=== PATIENT | female | born 2000 | race Caucasian/White ===

== ENCOUNTER 2020-07-21 02:18 | Inpatient (IN) | payer OTHER, SELFPAY ==
[2020-07-21] VITALS (14 sets, daily range): BP systolic 92–128; BP diastolic 41–77; PULSE 60–106; RESP 12–24; TEMP 36.4–36.7; O2SAT 97–100; BMI 22.1
--- NOTE | 2020-07-21 02:54 | ED.PSYCH ---
HPI - Psych General Chief Complaint: Psychiatric Symptoms Stated Complaint: CRISIS Time Seen by Provider: 07/21/20 02:53 Source: EMS Mode of arrival: EMS Limitations: other (Uncooperative) History of Present Illness HPI Narrative: Patient comes to the emergency room via EMS. Patient is coming from a custodial they had the patient be evaluated by [facility], who section the patient. According to [facility], patient has feelings of wanting to , no specific plan. Patient has been off medications for schizoaffective and bipolar disorder for over 3 years. Patient reported to them mood swings, states that she is being tracked for human sex trafficking. Patient was Section 12 by [facility] in the community, brought to the emergency room. Patient unwilling to talk Related Data Allergies Allergy/AdvReac Type Severity Reaction Status Date / Time No Known Allergies Allergy Verified 07/21/20 03:06 Review of Systems Review of Systems: Yes Other (Uncooperative) [facility] Past Medical History Medical History (Updated 07/21/20 @ 02:57 by Kavitha Irvin MD) Bipolar disorder Schizoaffective disorder Social History Social History Smoking Status: Current every day smoker Substance Use Type: Amphetamines, Club/Forestry Instructor Drugs, Crack/Cocaine, Hallucinogens, Marijuana and Other Substance Use Type Other:: anything i can get. Last Used Substance: Just Prior to Admission Any prior treatment program specific to substance use: Yes Advance Directives: No Physical Exam Vital Signs: Appearance: Alert. Oriented X3. Crying Eyes: Pupils equal, round and reactive to light. ENT: Pharynx normal. Neck: Normal inspection. CVS: Normal heart rate and rhythm. Respiratory: No respiratory distress. Abdomen: No distention. good BS x4 Skin: Skin warm and dry. Extremities: No lower extremity edema. Neuro: Oriented X 3. No motor deficit. No sensory deficit. Moving all extermities. No slurred speech Psych: pt teary, uncooperative, does not want to change her clothes into a gown, unwilling to talk Course Course Course Narrative: When patient arrived to the emergency room, patient tried fleeing. Then patient ran to the bathroom and Locked herself in there. Our charge nurse was able to open the bathroom. Patient curled up in the corner, does not want to be touched, does not want to get up, does not want to change into a hospital gown. Several nurses have attempted talking to her to avoid physical/chemical restraint. Patient was unwilling to cooperate. Patient had to be carried out of the bathroom, given 5mg of Haldol, 2 mg of Ativan. After the IM injection, she became more cooperative, helped to change into a hospital gown, requested food and water, physical restraints were not needed. Patient now awake, calm cooperative. [facility] health network consult pending. Sign-out given to Dr. Parks
[2020-07-21] MEDS: LORazepam 2 MG/ML VIAL IM (03:10)
[2020-07-21] MEDS: Haloperidol Lactate 5 MG/ML VIAL IM (03:10)
--- NOTE | 2020-07-21 03:15 | MHC.CARE ---
CARE team supported ED staff with pt who arrived by ambulance as a section 12 bedsearch after being evaluated in the community. After arriving, pt attempted to elope and closed herself in the bathroom. Attempts to coax pt into changing and moving into her designated room were made by this policy writer sales, security, rn charge, two others RNs, and the ED physician without success. Pt was physically moved to ED8 and assisted with changeover by security and nursing.
--- NOTE | 2020-07-21 04:07 | PC.NURSE ---
Arrival: pt arrived approximately at 0230 by ems. patient was seen [facility] in the community on section 12. section 12 was signed and dated at 07/21/20 at 0154. pt was uncooroperative with ems assessment. Upon arrival: Pt was tearful upon arrival. pt placed in chair. while this va underwriter was taking report from ems, patient attempted to elope. I asked here where she was going and assisted her back to her chair. Patient then walked ahead of this va underwriter, stated I have to pee and preceded to lock self in bathroom. Pt refused to respond when this rn attempted to redirect and have her open the door. This rn then opened the door with Horticultural Specialty Grower. patient was extremely labile alternating between crying and responding to internal stimuli. I don't like what they are saying about me. Pt refused to gas prover into hospital attire. Pt refused to hand over phone. Pt continued to refuse to respond to questions regarding history. Many attempts were made to redirect patient and verbally deescalate. The patient was given 30-45minutes to participate in gas prover Security called to bedside. 3 security officers attempted to gas prover patient. 3 Nurses attempted gas prover patient. MD garves to bathroom to attempt to deescalate. Pt continued to refuse to gas prover and answer questions about safety. Pt physically carried by ED staff and security from bathroom where the patient had barricaded herself to bed 8.. Pt medicated with IM Haldol and Ativan, rt thigh at 0310. Pt tearfully complied with changeover after being medicated. Pt moved to 6h for better visualization. 0340: call placed to [facility]. This va underwriter spoke to Vera (clinician who preformed assessment). Per Vera patient has a significant medical history of Schizoaffective disorder w/ bipolar. Pt has had two previous hospitalizations at [facility] for decompensation. Last event occurred in 2018, and patient has since been off all medication. Pt called [facility] papo after feeling like she was going to hurt herself. Pt also has had increased risky sexual behaviors, e.g. multiple sexual partners in short amount of time. pt lives with mother. Pt has tangental thoughts and disorganized speech pattern. Pt's mood is liable and alternates between being okay and texting on her phone to tearful and uncooperative. Pt's active delusion is that she is being investigated for Sexual trafficing others. No other active delusions reported. No plan for SI/HI. Pt has been section 12 for rapid decompensation.
--- NOTE | 2020-07-21 11:06 | PC.NURSE ---
Pt transferred from main ED, minimal eye contact, responding only briefly to questions.
--- NOTE | 2020-07-21 12:24 | PC.NURSE ---
Per N report pt obtains medications from [facility]- when called for med rec, [facility] stated that she has not picked up any prescriptions x1 year.
[2020-07-21 14:56] LABS: COVID-19 Test Negative (Negative)
[2020-07-21 15:08] LABS: MANUAL DIFF FLAG NO
[2020-07-21 15:09] LABS: Basophils Percent Auto 0.5 % (0-2); Eosinophils Absolute Auto 0.1 X10*3/uL (0.0-0.4); Eosinophils Percent Auto 1.4 % (0-4); Hematocrit 39.2 % (37-47); Hemoglobin 13.6 g/dl (12.0-16.0); Imm Gran Abs Auto 0.01 X10*3/uL (0.00-0.03); Imm Gran Pct Auto 0.2 % (0.0-0.4); Lymphocytes Absolute Auto 2.6 X10*3/uL (1.2-4.9); Lymphocytes Percent Auto 44.6 % (20-40); Mean Corpuscular HGB Conc 34.7 g/dl (31.0-35.0); Mean Corpuscular Hemoglobin 29.3 pg (27.0-33.0); Mean Corpuscular Volume 84.5 fL (80-98); Mean Platelet Volume 10.4 fL (9.4-12.3); Monocytes Absolute Auto 0.5 X10*3/uL (0.1-1.2); Monocytes Percent Auto 7.8 % (2-11); Neutrophils Absolute Auto 2.7 X10*3/uL (2.0-8.3); Neutrophils Percent Auto 45.5 % (45-73); Platelet Count 324 X10*3/uL (160-400); Red Blood Count 4.64 X10*6/uL (4.20-5.50); Red Cell Distribution Width 12.5 % (11.0-16.0); White Blood Count 5.9 X10*3/uL (4.8-10.8)
[2020-07-21 15:41] LABS: Alanine Aminotransferase 15 U/L (0-31); Albumin Level 4.8 g/dL (3.5-5.0); Alkaline Phosphatase 75 U/L (39-117); Anion Gap 14 (12-20); Aspartate Amino Transferase 21 U/L (5-31); Bilirubin Total 1.1 mg/dL (0.0-1.0); Blood Urea Nitrogen 14 mg/dL (9-16); Calcium 9.6 mg/dL (8.4-10.2); Carbon Dioxide 26 mmol/L (22-29); Chloride 103 mmol/L (96-108); Creatinine Clr Calc Pharmacy 96.1; Estimated Glomerular Filt Rate > 60; Ethanol < 10 mg/dL; Glucose Random 87 mg/dL (60-115); Potassium 3.9 mmol/L (3.3-5.1); Sodium 139 mmol/L (135-145); Total Protein 8.3 g/dL (6.5-8.0)
--- NOTE | 2020-07-21 15:47 | PC.NURSE ---
Pt awake, cooperative w/ care. Responses to questions brief, currently taking a shower.
[2020-07-21 16:48] LABS: Amphetamine Screen Urine Not Detected (Not Detect); Barbiturates, Urine Not Detected (Not Detect); Benzodiazepines Screen Urine Not Detected (Not Detect); Cannabinoid Screen Urine POSITIVE (Not Detect); Cocaine Screen Urine Not Detected (Not Detect); Opiate Screen Urine Not Detected (Not Detect); Phencyclidine Screen Urine Not Detected (Not Detect)
[2020-07-21 19:18] LABS: UPreg QC Valid YES; Urine Pregnancy NEGATIVE (NEGATIVE)
--- NOTE | 2020-07-21 19:20 | PC.NURSE ---
Patient calm and quiet, currently in her room, writing, denied distress, will continue to monitor.
--- NOTE | 2020-07-21 23:28 | PC.ADMIT ---
Pt is a 20 year old female that came into [facility] due to calling and seeking help with managing sx of schizoaffective disorder. She denies that she has any AH/VH but appears to be responding to internal stimuli. Upon admission pt was very tearful when talking with T/W about recent stressors with her boyfriend in which she explained 'I cheated on him and then slept with two guys because I cannot control myself...he does not deserve this . If asked if she experienced AH/VH pt was tangential in explaining that she had lucid dreams and gave descriptive details in each dream that she has experienced. Reports that she can't sleep due to these nightmares- one being that her dad was in the room standing over her mother with a knife and there was blood everywhere. Dr. Wu is her neurologist to tend to her fibromyalgia that she has had for 4 years. Previously at [facility] in [id number]. Is having delusions of being a human sex trafficker and is being investigated. CV signed. Dr. Brown ordered and obtained orders. Placed on 5 minute checks.
[2020-07-21] MEDS: hydrOXYzine HCL 25 MG TABLET PO (23:57)
[2020-07-21] MEDS: HaloperidoL 5 MG TABLET PO (23:57)
[2020-07-21] MEDS: LORazepam 1 MG TABLET PO (23:57)
[2020-07-22 00:03] VITALS: BMI 22.4
[2020-07-22 06:35] VITALS: BP 111/71; PULSE 73; RESP 16; TEMP 36.7; O2SAT 99
[2020-07-22] MEDS: HaloperidoL 5 MG TABLET PO ×2 (09:36→21:33)
[2020-07-22] MEDS: LORazepam 1 MG TABLET PO ×2 (09:36→21:33)
--- NOTE | 2020-07-22 16:12 | P.HPPS_ITS ---
Documented by User: Kierra Norman 07/22/20 16:28 HPI Chief Complaint: Psychosis Sources of Information: patient interviewed, chart reviewed and crisis/core team assessment reviewed Additional Sources of Information: ALONSO WARNING GIVEN- pt understands. HPI Narrative: Ms. Beckham is a 20 year-old woman with hx of schizoaffective disorder, bipolar type. Per crisis assessment, pt called 911 due to increased suicidal ideation, feeling hopeless/helpless, stating people were talking about her. Collateral information from the mother was gathered by crisis, who reported that pt has been presenting as easily irritable, with periods of incongruent laughter and crying, not sleeping at night for the past month or so. Per crisis, pt has also been engaging in risky behaviors such as going away with two men that she didn't know. While in the ED, pt locked herself in bathroom for about 45 minutes, requiring chemical restraint of Haldol 5mg and Ativan 2mg. She apparently had also reported paranoia related to being part of a human trafficking [place]. On the unit, Ms. Beckham has been mostly in bed, minimally engaging or participating in interview with this quality analyst/technical writer. She reports she called crisis because she wanted to . No plan disclose. She reports I'm tired of being so pretty. When asked if others are taking advantage of her because of her physical appearance, pt does not respond. She reports she thinks everybody is talking about her and this makes her very upset. When asked about VH/AH, pt denies hearing voices but apparently has been observed talking to herself and possibly AH of derogatory nature that she confuses as others talking about her. She denies history of suicide attempts. She reports she has been up for most nights. She reports in the past she has been on olanzapine but does not think it was helpful. Past Psychiatric History: Inpatient: [facility]- 01/2018- [facility] OP: none currently but used to go to [facility] Suicide attempts: none Past medication trials: olanzapine Medical Evaluation Reviewed: Yes [facility] Medical History (Updated 07/22/20 @ 15:05 by Kierra Norman) Bipolar disorder Schizoaffective disorder Diagnostics Vital Signs (24Hr): Vital Signs - 24 hr 07/21/20 18:00 07/21/20 21:52 07/21/20 23:50 Temperature 97.6 F 97.7 F Pulse Rate 106 H 106 H Respiratory Rate 20 16 16 Blood Pressure 107/77 121/76 Pulse Oximetry 99 100 07/22/20 06:35 Temperature 98.1 F Pulse Rate 73 Respiratory Rate 16 Blood Pressure 111/71 Pulse Oximetry 99 Body Mass Index 22.4 Labs Results: 07/21/20 14:54 07/21/20 14:54 Labs: Laboratory Results - last 48 hr 07/21/20 07/21/20 07/21/20 14:32 14:54 14:54 WBC 5.9 RBC 4.64 Hgb 13.6 Hct 39.2 MCV 84.5 MCH 29.3 MCHC 34.7 RDW 12.5 Plt Count 324 MPV 10.4 Immature Gran % (Auto) 0.2 Neut % (Auto) 45.5 Lymph % (Auto) 44.6 H [place] % (Auto) 7.8 Eos % (Auto) 1.4 Baso % (Auto) 0.5 Lymph # (Auto) 2.6 [place] # (Auto) 0.5 Eos # (Auto) 0.1 Baso # (Auto) 0.0 Abs Immat Gran (auto) 0.01 Absolute Neuts (auto) 2.7 Absolute Nucleated RBC 0.000 Nucleated RBC % (auto) 0.0 Sodium Potassium Chloride Carbon Dioxide Anion Gap BUN Creatinine Estim Creat Clear Calc Estimated GFR Random Glucose Calcium Total Bilirubin AST ALT Alkaline Phosphatase Total Protein Albumin Urine Test Urine Opiates Screen Ur Barbiturates Screen Ur Phencyclidine Scrn Ur Amphetamines Screen U Benzodiazepines Scrn Urine Cocaine Screen U Marijuana (THC) Screen Ethyl Alcohol < 10 COVID-19 (REZA) Negative COVID-19 Clin Com See Note 07/21/20 07/21/20 07/21/20 14:54 15:54 19:12 WBC RBC Hgb Hct MCV MCH MCHC RDW Plt Count MPV Immature Gran % (Auto) Neut % (Auto) Lymph % (Auto) [place] % (Auto) Eos % (Auto) Baso % (Auto) Lymph # (Auto) [place] # (Auto) Eos # (Auto) Baso # (Auto) Abs Immat Gran (auto) Absolute Neuts (auto) Absolute Nucleated RBC Nucleated RBC % (auto) Sodium 139 Potassium 3.9 Chloride 103 Carbon Dioxide 26 Anion Gap 14 BUN 14 Creatinine 0.80 Estim Creat Clear Calc 96.1 Estimated GFR > 60 Random Glucose 87 Calcium 9.6 Total Bilirubin 1.1 H AST 21 ALT 15 Alkaline Phosphatase 75 Total Protein 8.3 H Albumin 4.8 Urine Test NEGATIVE Urine Opiates Screen Not Detected Ur Barbiturates Screen Not Detected Ur Phencyclidine Scrn Not Detected Ur Amphetamines Screen Not Detected U Benzodiazepines Scrn Not Detected Urine Cocaine Screen Not Detected U Marijuana (THC) Screen POSITIVE H Ethyl Alcohol COVID-19 (REZA) COVID-19 Clin Com Meds/Allergies Meds Home Medications Acetaminophen (Acetaminophen 325 Mg Tablet) 650 mg PO Q6H PRN PRN Reason: Headache/Pain Mild Scale (1-3) Al Hydroxide/Mg Hydroxide (Magnesium Hydrox/Alum Hydrox 30 Ml Oral.Susp) 30 ml PO Q6H PRN PRN Reason: Heartburn/Nausea Haloperidol (Haloperidol 5 Mg Tablet) 5 mg PO Q6H PRN PRN Reason: anxiety/restlessness Last Admin: 07/22/20 21:33 Dose: 5 mg Documented by: Lorazepam (Lorazepam 1 Mg Tablet) 1 mg PO Q6H PRN PRN Reason: anxiety/restlessness Last Admin: 07/22/20 21:33 Dose: 1 mg Documented by: Magnesium Hydroxide (Milk Of Magnesia 30 Ml Oral.Susp) 30 ml PO DAILY PRN PRN Reason: Constipation Nicotine (Nicotine 21 Mg Patch.Td24) 21 mg TRANSDERMA DAILY [facility] Last Admin: 07/22/20 14:34 Dose: Not Given Documented by: Nicotine Polacrilex (Nicotine Polacrilex 4 Mg Lozenge) 4 mg BUCCAL Q2H PRN PRN Reason: Nicotine Cravings Last Admin: 07/22/20 22:12 Dose: 4 mg Documented by: Paliperidone (Paliperidone Er 6 Mg Tab.Er.24) 6 mg PO DAILY [facility] Last Admin: 07/22/20 21:34 Dose: Not Given Documented by: Trazodone HCl (Trazodone Hcl 50 Mg Tablet) 50 mg PO BEDTIME PRN PRN Reason: Insomnia Trazodone HCl (Trazodone Hcl 50 Mg Tablet) 50 mg PO BEDTIME [facility] Last Admin: 07/22/20 21:33 Dose: 50 mg Documented by: Allergies Allergies Allergy/AdvReac Type Severity Reaction Status Date / Time No Known Allergies Allergy Verified 07/21/20 03:06 Mental Status Exam Mental Status Exam Narrative: Appearance: wearing hospital gown, disheveled, poor hygiene, in NAD Behavior: minimal eye contact, minimally engaged in conversation Psychomotor: some retardation noted Speech: mumbles at times, delayed response rate, monotone, minimally spontaneous TP: disorganized at times TC: feeling like others are talking about her, hopeless/helpless Mood: depressed Affect: constricted, blunted AH/VH: appears to be responding to internal stimuli Delusions: some suspiciousness, thinking ppl are out to get her. Insight/judgment: fair x 2. Memory/cog: alert, oriented x 3. impaired secondary to psychiatric symptoms. Assessment & Plan Assessment & Plan (1) Schizoaffective disorder, bipolar type: Status: Acute Code(s): F25.0 - Schizoaffective disorder, bipolar type Assessment and Plan: 1. We discussed starting paliperidone 6mg po daily for mood/psychosis. 2. Obtain collateral information 3. Aftercare planning Reason for continued inpatient stay Substantial Risk for: harm to self and inability to function Documented by User: Adarsh Godinez MD 07/22/20 22:56 HPI Chief Complaint: Psychosis [facility] Medical History (Updated 07/22/20 @ 15:05 by Kierra Norman) Bipolar disorder Schizoaffective disorder Diagnostics Labs Results: 07/21/20 14:54 07/21/20 14:54 Meds/Allergies Meds Home Medications Acetaminophen (Acetaminophen 325 Mg Tablet) 650 mg PO Q6H PRN PRN Reason: Headache/Pain Mild Scale (1-3) Al Hydroxide/Mg Hydroxide (Magnesium Hydrox/Alum Hydrox 30 Ml Oral.Susp) 30 ml PO Q6H PRN PRN Reason: Heartburn/Nausea Haloperidol (Haloperidol 5 Mg Tablet) 5 mg PO Q6H PRN PRN Reason: anxiety/restlessness Last Admin: 07/22/20 21:33 Dose: 5 mg Documented by: Lorazepam (Lorazepam 1 Mg Tablet) 1 mg PO Q6H PRN PRN Reason: anxiety/restlessness Last Admin: 07/22/20 21:33 Dose: 1 mg Documented by: Magnesium Hydroxide (Milk Of Magnesia 30 Ml Oral.Susp) 30 ml PO DAILY PRN PRN Reason: Constipation Nicotine (Nicotine 21 Mg Patch.Td24) 21 mg TRANSDERMA DAILY [facility] Last Admin: 07/22/20 14:34 Dose: Not Given Documented by: Nicotine Polacrilex (Nicotine Polacrilex 4 Mg Lozenge) 4 mg BUCCAL Q2H PRN PRN Reason: Nicotine Cravings Last Admin: 07/22/20 22:12 Dose: 4 mg Documented by: Paliperidone (Paliperidone Er 6 Mg Tab.Er.24) 6 mg PO DAILY [facility] Last Admin: 07/22/20 21:34 Dose: Not Given Documented by: Trazodone HCl (Trazodone Hcl 50 Mg Tablet) 50 mg PO BEDTIME PRN PRN Reason: Insomnia Trazodone HCl (Trazodone Hcl 50 Mg Tablet) 50 mg PO BEDTIME [facility] Last Admin: 07/22/20 21:33 Dose: 50 mg Documented by: Allergies Allergies Allergy/AdvReac Type Severity Reaction Status Date / Time No Known Allergies Allergy Verified 07/21/20 03:06
[2020-07-22 18:00] VITALS: BP 121/79; PULSE 114; TEMP 36.3
[2020-07-22] MEDS: traZODone HCL 50 MG TABLET PO (21:33)
[2020-07-23 06:00] VITALS: BP 106/63; PULSE 62; RESP 16; TEMP 36.4; O2SAT 98
[2020-07-23] MEDS: Paliperidone ER 6 MG TAB.ER.24 PO (08:49)
[2020-07-23] MEDS: Nicotine 21 MG PATCH.TD24 TRANSDERMA (08:49)
[2020-07-23 08:59] LABS: Cholesterol 142 mg/dL; HDL Cholesterol 45 mg/dL; LDL Cholesterol Calculated 83 mg/dl; Triglycerides 70 mg/dL
[2020-07-23 09:13] LABS: Estimated Average Glucose 82 mg/dL; Hemoglobin A1c % 4.5 %
[2020-07-23 09:19] LABS: TSH reflex Free T4 1.24 uIU/mL (0.32-4.0)
[2020-07-23 14:37] VITALS: BMI 23.0
--- NOTE | 2020-07-23 14:43 | P.PNPSI_ITS ---
Subjective Subjective Date of Service: 07/23/20 Reason For Visit: Psychosis Subjective Notes: Conditional Voluntary Interim History: Pt appears with expansive affect today. She giggles at times without apparent reason. She reports she has been having racing thoughts. When asked about content of the thoughts pt unable to explain but feels like she can't stop herself. She also reports not sleep well prior to coming to hospital but last night able to get some rest. She denies SI/HI. She reports thinking that others are talking about her at times. She has been more visible in the unit and has attended some groups. Medication Compliance: Yes Side effects from medications: No Attending Groups: Yes Review of Systems Review of Systems Yes Other (Uncooperative) Mental Status Exam Mental Status Exam Narrative: Appearance: casually groomed, improved hygiene, in NAD Behavior: superficially cooperative Psychomotor: some excitatory movements at times Speech: clear, regular rate/tone/rhythm, spontaneous TP: tangential at times TC: feeling like others are talking about her, hopeless/helpless Mood: better Affect: expansive AH/VH: appears to be responding to internal stimuli Delusions: some suspiciousness, thinking ppl are out to get her. Insight/judgment: fair x 2. Memory/cog: alert, oriented x 3. impaired secondary to psychiatric symptoms. Diagnostics Vital Signs (24Hr): Vital Signs - 24 hr 07/22/20 18:00 07/23/20 06:00 Temperature 97.4 F 97.5 F Pulse Rate 114 H 62 Respiratory Rate 16 Blood Pressure 121/79 106/63 Pulse Oximetry 98 Body Mass Index 23.0 Labs Results: 07/21/20 14:54 07/21/20 14:54 Labs: Laboratory Results - last 48 hr 07/21/20 07/21/20 07/21/20 14:32 14:54 14:54 WBC 5.9 RBC 4.64 Hgb 13.6 Hct 39.2 MCV 84.5 MCH 29.3 MCHC 34.7 RDW 12.5 Plt Count 324 MPV 10.4 Immature Gran % (Auto) 0.2 Neut % (Auto) 45.5 Lymph % (Auto) 44.6 H [place] % (Auto) 7.8 Eos % (Auto) 1.4 Baso % (Auto) 0.5 Lymph # (Auto) 2.6 [place] # (Auto) 0.5 Eos # (Auto) 0.1 Baso # (Auto) 0.0 Abs Immat Gran (auto) 0.01 Absolute Neuts (auto) 2.7 Absolute Nucleated RBC 0.000 Nucleated RBC % (auto) 0.0 Sodium Potassium Chloride Carbon Dioxide Anion Gap BUN Creatinine Estim Creat Clear Calc Estimated GFR Random Glucose Estimat Average Glucose Hemoglobin A1c % Calcium Total Bilirubin AST ALT Alkaline Phosphatase Total Protein Albumin Triglycerides Cholesterol LDL Cholesterol, Calc HDL Cholesterol TSH Urine Test Urine Opiates Screen Ur Barbiturates Screen Ur Phencyclidine Scrn Ur Amphetamines Screen U Benzodiazepines Scrn Urine Cocaine Screen U Marijuana (THC) Screen Ethyl Alcohol < 10 COVID-19 (REZA) Negative COVID-19 Clin Com See Note 07/21/20 07/21/20 07/21/20 14:54 15:54 19:12 WBC RBC Hgb Hct MCV MCH MCHC RDW Plt Count MPV Immature Gran % (Auto) Neut % (Auto) Lymph % (Auto) [place] % (Auto) Eos % (Auto) Baso % (Auto) Lymph # (Auto) [place] # (Auto) Eos # (Auto) Baso # (Auto) Abs Immat Gran (auto) Absolute Neuts (auto) Absolute Nucleated RBC Nucleated RBC % (auto) Sodium 139 Potassium 3.9 Chloride 103 Carbon Dioxide 26 Anion Gap 14 BUN 14 Creatinine 0.80 Estim Creat Clear Calc 96.1 Estimated GFR > 60 Random Glucose 87 Estimat Average Glucose Hemoglobin A1c % Calcium 9.6 Total Bilirubin 1.1 H AST 21 ALT 15 Alkaline Phosphatase 75 Total Protein 8.3 H Albumin 4.8 Triglycerides Cholesterol LDL Cholesterol, Calc HDL Cholesterol TSH Urine Test NEGATIVE Urine Opiates Screen Not Detected Ur Barbiturates Screen Not Detected Ur Phencyclidine Scrn Not Detected Ur Amphetamines Screen Not Detected U Benzodiazepines Scrn Not Detected Urine Cocaine Screen Not Detected U Marijuana (THC) Screen POSITIVE H Ethyl Alcohol COVID-19 (REZA) COVID-19 Clin Com 07/23/20 07/23/20 08:24 08:24 WBC RBC Hgb Hct MCV MCH MCHC RDW Plt Count MPV Immature Gran % (Auto) Neut % (Auto) Lymph % (Auto) [place] % (Auto) Eos % (Auto) Baso % (Auto) Lymph # (Auto) [place] # (Auto) Eos # (Auto) Baso # (Auto) Abs Immat Gran (auto) Absolute Neuts (auto) Absolute Nucleated RBC Nucleated RBC % (auto) Sodium Potassium Chloride Carbon Dioxide Anion Gap BUN Creatinine Estim Creat Clear Calc Estimated GFR Random Glucose Estimat Average Glucose 82 Hemoglobin A1c % 4.5 Calcium Total Bilirubin AST ALT Alkaline Phosphatase Total Protein Albumin Triglycerides 70 Cholesterol 142 LDL Cholesterol, Calc 83 HDL Cholesterol 45 TSH 1.24 Urine Test Urine Opiates Screen Ur Barbiturates Screen Ur Phencyclidine Scrn Ur Amphetamines Screen U Benzodiazepines Scrn Urine Cocaine Screen U Marijuana (THC) Screen Ethyl Alcohol COVID-19 (REZA) COVID-19 Clin Com Medications Medications Current Medications Generic Name Dose Route Start Last Admin Trade Name Freq PRN Reason Stop Dose Admin Acetaminophen 650 mg 07/21/20 21:21 Acetaminophen 325 Mg Tablet PO Q6H PRN Headache/Pain Mild Scale (1-3) Al Hydroxide/Mg Hydroxide 30 ml 07/21/20 21:21 Magnesium Hydrox/Alum Hydrox 30 Ml Oral.Susp PO Q6H PRN Heartburn/Nausea Haloperidol 5 mg 07/21/20 21:24 07/22/20 21:33 Haloperidol 5 Mg Tablet PO 5 mg Q6H PRN Administration anxiety/restlessness Lorazepam 1 mg 07/21/20 21:24 07/22/20 21:33 Lorazepam 1 Mg Tablet PO 1 mg Q6H PRN Administration anxiety/restlessness Magnesium Hydroxide 30 ml 07/21/20 21:21 Milk Of Magnesia 30 Ml Oral.Susp PO DAILY PRN Constipation Nicotine 21 mg 07/22/20 09:59 07/23/20 08:49 Nicotine 21 Mg Patch.Td24 TRANSDERMA 21 mg DAILY [facility] Administration Nicotine Polacrilex 4 mg 07/22/20 09:56 07/22/20 22:12 Nicotine Polacrilex 4 Mg Lozenge BUCCAL 4 mg Q2H PRN Administration Nicotine Cravings Paliperidone 6 mg 07/22/20 16:15 07/23/20 08:49 Paliperidone Er 6 Mg Tab.Er.24 PO 6 mg DAILY [facility] Administration Trazodone HCl 50 mg 07/21/20 21:21 Trazodone Hcl 50 Mg Tablet PO BEDTIME PRN Insomnia Trazodone HCl 50 mg 07/22/20 21:00 07/22/20 21:33 Trazodone Hcl 50 Mg Tablet PO 50 mg BEDTIME [facility]ATA Administration Allergies Allergies Allergy/AdvReac Type Severity Reaction Status Date / Time No Known Allergies Allergy Verified 07/21/20 03:06 Assessment & Plan Assessment & Plan (1) Schizoaffective disorder, bipolar type: Status: Acute Code(s): F25.0 - Schizoaffective disorder, bipolar type Assessment and Plan: 1. Continue Paliperidone 6mg po daily 2. Start depakote 500mg po BID for mood. 3. Obtain collateral information 4. Aftercare planning Greater than 50% of the session was spent on counseling and/or coordination of care Reason for contiued inpatient stay Substantial Risk for: harm to self and inability to function
[2020-07-23 16:15] VITALS: BP 130/81; PULSE 105; TEMP 36.6; O2SAT 97
[2020-07-23] MEDS: LORazepam 1 MG TABLET PO ×2 (16:37→23:57)
[2020-07-23] MEDS: diphenhydrAMINE HCL 50 MG/ML VIAL IM (16:41)
[2020-07-23] MEDS: Divalproex Sodium 500 MG TABLET.DR PO (21:38)
[2020-07-23] MEDS: traZODone HCL 50 MG TABLET PO ×2 (21:39→23:57)
[2020-07-24 06:10] VITALS: BP 91/55; PULSE 79; RESP 14; TEMP 36.6; O2SAT 98
[2020-07-24] MEDS: Divalproex Sodium 500 MG TABLET.DR PO ×2 (09:07→21:11)
[2020-07-24] MEDS: Paliperidone ER 6 MG TAB.ER.24 PO (09:07)
[2020-07-24] MEDS: Nicotine 21 MG PATCH.TD24 TRANSDERMA (11:57)
[2020-07-24] MEDS: Benztropine Mesylate 1 MG TABLET PO (14:00)
[2020-07-24] MEDS: Acetaminophen 325 MG TABLET 650 MG PO (16:19)
[2020-07-24 16:40] VITALS: BP 118/72; PULSE 118; RESP 16; TEMP 36.6; O2SAT 99
[2020-07-24 17:34] VITALS: PULSE 120
[2020-07-24] MEDS: LORazepam 1 MG TABLET PO (17:59)
--- NOTE | 2020-07-24 18:06 | HO.PSYCHPN ---
Subjective Subjective Date of Service: 07/24/20 Reason For Visit: Psychosis Interim History: Pt reports hearing less voices. She also reports not seeing as many white shadows. She reports she was paranoid about people in the ED, thinking that they were trying to recruit her for a sex trafficking ring. She denies SI/HI. She reports fair sleep. She has been visible in the unit. She has attended some groups. Review of Systems Review of Systems Yes Other (Uncooperative) Mental Status Exam Mental Status Exam Narrative: Appearance: casually groomed, improved hygiene, in NAD Behavior: superficially cooperative Psychomotor: some excitatory movements at times Speech: clear, regular rate/tone/rhythm, spontaneous TP: tangential at times TC: feeling like others are talking about her, hopeless/helpless Mood: better Affect: expansive AH/VH: appears to be responding to internal stimuli Delusions: some suspiciousness, thinking ppl are out to get her. Insight/judgment: fair x 2. Memory/cog: alert, oriented x 3. impaired secondary to psychiatric symptoms. Diagnostics Vital Signs (24Hr): Vital Signs - 24 hr 07/24/20 06:10 07/24/20 16:40 07/24/20 17:34 Temperature 97.9 F 97.8 F Pulse Rate 79 118 H 120 H Respiratory Rate 14 16 Blood Pressure 91/55 L 118/72 Pulse Oximetry 98 99 Body Mass Index 23.0 Labs Results: 07/21/20 14:54 07/21/20 14:54 Labs: Laboratory Results - last 48 hr 07/23/20 07/23/20 08:24 08:24 Estimat Average Glucose 82 Hemoglobin A1c % 4.5 Triglycerides 70 Cholesterol 142 LDL Cholesterol, Calc 83 HDL Cholesterol 45 TSH 1.24 Medications Medications Current Medications Generic Name Dose Route Start Last Admin Trade Name Freq PRN Reason Stop Dose Admin Acetaminophen 650 mg 07/21/20 21:21 07/24/20 16:19 Acetaminophen 325 Mg Tablet PO 650 mg Q6H PRN Administration Headache/Pain Mild Scale (1-3) Al Hydroxide/Mg Hydroxide 30 ml 07/21/20 21:21 Magnesium Hydrox/Alum Hydrox 30 Ml Oral.Susp PO Q6H PRN Heartburn/Nausea Benztropine Mesylate 1 mg 07/23/20 16:34 07/24/20 14:00 Benztropine Mesylate 1 Mg Tablet PO 1 mg Q8H PRN Administration EPS/dystonia Divalproex Sodium 500 mg 07/23/20 21:00 07/24/20 09:07 Divalproex Sodium 500 Mg Tablet.Dr PO 500 mg BID CATA Administration Lorazepam 1 mg 07/21/20 21:24 07/24/20 17:59 Lorazepam 1 Mg Tablet PO 1 mg Q6H PRN Administration anxiety/restlessness Magnesium Hydroxide 30 ml 07/21/20 21:21 Milk Of Magnesia 30 Ml Oral.Susp PO DAILY PRN Constipation Nicotine 21 mg 07/22/20 09:59 07/24/20 11:57 Nicotine 21 Mg Patch.Td24 TRANSDERMA 21 mg DAILY CATA Administration Nicotine Polacrilex 4 mg 07/22/20 09:56 07/24/20 09:11 Nicotine Polacrilex 4 Mg Lozenge BUCCAL 4 mg Q2H PRN Administration Nicotine Cravings Paliperidone 6 mg 07/22/20 16:15 07/24/20 09:07 Paliperidone Er 6 Mg Tab.Er.24 PO 6 mg DAILY CATA Administration Trazodone HCl 50 mg 07/21/20 21:21 07/23/20 23:57 Trazodone Hcl 50 Mg Tablet PO 50 mg BEDTIME PRN Administration Insomnia Trazodone HCl 50 mg 07/22/20 21:00 07/23/20 21:39 Trazodone Hcl 50 Mg Tablet PO 50 mg BEDTIME CATA Administration Allergies Allergies Allergy/AdvReac Type Severity Reaction Status Date / Time haloperidol [From Haldol] AdvReac dystonia Verified 07/23/20 16:34 Assessment & Plan Assessment & Plan (1) Schizoaffective disorder, bipolar type: Status: Acute Code(s): F25.0 - Schizoaffective disorder, bipolar type Assessment and Plan: 1. Continue Paliperidone 6mg po daily 2. Continue depakote 500mg po BID for mood. 3. Obtain collateral information 4. Aftercare planning Greater than 50% of the session was spent on counseling and/or coordination of care Reason for contiued inpatient stay Substantial Risk for: harm to self and inability to function
[2020-07-24 19:04] VITALS: PULSE 82
[2020-07-24] MEDS: traZODone HCL 50 MG TABLET PO (21:12)
[2020-07-24 21:18] VITALS: PULSE 98
[2020-07-25 06:00] VITALS: BP 115/74; PULSE 93; TEMP 36.1; O2SAT 100
--- NOTE | 2020-07-25 07:38 | HO.PSYCHPN ---
Subjective Subjective Date of Service: 07/25/20 Reason For Visit: Psychosis Interim History: Appears more organized, less paranoid. No SI. Pleasant. Increased HR responded to Lorazepam Medication Compliance: Yes Side effects from medications: No Attending Groups: Yes Review of Systems Review of Systems Yes Other (Uncooperative) Mental Status Exam Mental Status Exam Narrative: Appearance: casually groomed, improved hygiene, in NAD Behavior: superficially cooperative Psychomotor: some excitatory movements at times Speech: clear, regular rate/tone/rhythm, spontaneous TP: tangential at times TC: feeling like others are talking about her, hopeless/helpless Mood: better Affect: expansive AH/VH: appears to be responding to internal stimuli Delusions: some suspiciousness, thinking ppl are out to get her. Insight/judgment: fair x 2. Memory/cog: alert, oriented x 3. impaired secondary to psychiatric symptoms. Diagnostics Vital Signs (24Hr): Vital Signs - 24 hr 07/24/20 16:40 07/24/20 17:34 07/24/20 19:04 Temperature 97.8 F Pulse Rate 118 H 120 H 82 Respiratory Rate 16 Blood Pressure 118/72 Pulse Oximetry 99 07/24/20 21:18 07/25/20 06:00 Temperature 97.0 F Pulse Rate 98 93 Respiratory Rate Blood Pressure 115/74 Pulse Oximetry 100 Body Mass Index 23.0 Labs Results: 07/21/20 14:54 07/21/20 14:54 Labs: Laboratory Results - last 48 hr 07/23/20 07/23/20 08:24 08:24 Estimat Average Glucose 82 Hemoglobin A1c % 4.5 Triglycerides 70 Cholesterol 142 LDL Cholesterol, Calc 83 HDL Cholesterol 45 TSH 1.24 Medications Medications Current Medications Generic Name Dose Route Start Last Admin Trade Name Freq PRN Reason Stop Dose Admin Acetaminophen 650 mg 07/21/20 21:21 07/24/20 16:19 Acetaminophen 325 Mg Tablet PO 650 mg Q6H PRN Administration Headache/Pain Mild Scale (1-3) Al Hydroxide/Mg Hydroxide 30 ml 07/21/20 21:21 Magnesium Hydrox/Alum Hydrox 30 Ml Oral.Susp PO Q6H PRN Heartburn/Nausea Benztropine Mesylate 1 mg 07/23/20 16:34 07/24/20 14:00 Benztropine Mesylate 1 Mg Tablet PO 1 mg Q8H PRN Administration EPS/dystonia Divalproex Sodium 500 mg 07/23/20 21:00 07/24/20 21:11 Divalproex Sodium 500 Mg Tablet.Dr PO 500 mg BID CATA Administration Lorazepam 1 mg 07/21/20 21:24 07/24/20 17:59 Lorazepam 1 Mg Tablet PO 1 mg Q6H PRN Administration anxiety/restlessness Magnesium Hydroxide 30 ml 07/21/20 21:21 Milk Of Magnesia 30 Ml Oral.Susp PO DAILY PRN Constipation Nicotine 21 mg 07/22/20 09:59 07/24/20 11:57 Nicotine 21 Mg Patch.Td24 TRANSDERMA 21 mg DAILY CATA Administration Nicotine Polacrilex 4 mg 07/22/20 09:56 07/24/20 21:17 Nicotine Polacrilex 4 Mg Lozenge BUCCAL 4 mg Q2H PRN Administration Nicotine Cravings Paliperidone 6 mg 07/22/20 16:15 07/24/20 09:07 Paliperidone Er 6 Mg Tab.Er.24 PO 6 mg DAILY CATA Administration Trazodone HCl 50 mg 07/21/20 21:21 07/23/20 23:57 Trazodone Hcl 50 Mg Tablet PO 50 mg BEDTIME PRN Administration Insomnia Trazodone HCl 50 mg 07/22/20 21:00 07/24/20 21:12 Trazodone Hcl 50 Mg Tablet PO 50 mg BEDTIME CATA Administration Allergies Allergies Allergy/AdvReac Type Severity Reaction Status Date / Time haloperidol [From Haldol] AdvReac dystonia Verified 07/23/20 16:34 Assessment & Plan Assessment & Plan (1) Schizoaffective disorder, bipolar type: Status: Acute Code(s): F25.0 - Schizoaffective disorder, bipolar type Assessment and Plan: 1. Continue Paliperidone 6mg po daily 2. Continue depakote 500mg po BID for mood. 3. Obtain collateral information 4. Aftercare planning Monitor vitals Greater than 50% of the session was spent on counseling and/or coordination of care Reason for contiued inpatient stay Substantial Risk for: rapid decompensation
[2020-07-25] MEDS: Divalproex Sodium 500 MG TABLET.DR PO ×2 (08:34→21:03)
[2020-07-25] MEDS: Nicotine 21 MG PATCH.TD24 TRANSDERMA (08:34)
[2020-07-25] MEDS: Paliperidone ER 6 MG TAB.ER.24 PO (08:34)
[2020-07-25] MEDS: Acetaminophen 325 MG TABLET 650 MG PO ×2 (10:02→16:09)
[2020-07-25 17:05] VITALS: BP 115/71; PULSE 110; TEMP 36.4
[2020-07-25] MEDS: LORazepam 1 MG TABLET PO (18:02)
[2020-07-25] MEDS: traZODone HCL 50 MG TABLET PO (21:03)
[2020-07-26 06:00] VITALS: BP 85/46; PULSE 71; RESP 14; TEMP 36.6
--- NOTE | 2020-07-26 08:19 | HO.PSYCHPN ---
Subjective Subjective Date of Service: 07/26/20 Reason For Visit: Psychosis Interim History: 07/26: Present feels more organized. Lorazepam helped vital signs are now normal. Patient reported some lability especially after interacting with another patient. Overall steady improvement noted. 07/25 Appears more organized, less paranoid. No SI. Pleasant. Increased HR responded to Lorazepam Review of Systems Review of Systems Yes Other (Uncooperative) Mental Status Exam Mental Status Exam Narrative: Appearance: casually groomed, improved hygiene, in NAD Behavior: superficially cooperative Psychomotor: some excitatory movements at times Speech: clear, regular rate/tone/rhythm, spontaneous TP: tangential at times TC: feeling like others are talking about her, hopeless/helpless Mood: better Affect: expansive AH/VH: appears to be responding to internal stimuli Delusions: some suspiciousness, thinking ppl are out to get her. Insight/judgment: fair x 2. Memory/cog: alert, oriented x 3. impaired secondary to psychiatric symptoms. Diagnostics Vital Signs (24Hr): Vital Signs - 24 hr 07/25/20 17:05 07/26/20 06:00 Temperature 97.5 F 98 F Pulse Rate 110 H 71 Respiratory Rate 14 Blood Pressure 115/71 85/46 L Body Mass Index 23.0 Labs Results: 07/21/20 14:54 07/21/20 14:54 Medications Medications Current Medications Generic Name Dose Route Start Last Admin Trade Name Freq PRN Reason Stop Dose Admin Acetaminophen 650 mg 07/21/20 21:21 07/25/20 16:09 Acetaminophen 325 Mg Tablet PO 650 mg Q6H PRN Administration Headache/Pain Mild Scale (1-3) Al Hydroxide/Mg Hydroxide 30 ml 07/21/20 21:21 Magnesium Hydrox/Alum Hydrox 30 Ml Oral.Susp PO Q6H PRN Heartburn/Nausea Benztropine Mesylate 1 mg 07/23/20 16:34 07/24/20 14:00 Benztropine Mesylate 1 Mg Tablet PO 1 mg Q8H PRN Administration EPS/dystonia Divalproex Sodium 500 mg 07/23/20 21:00 07/25/20 21:03 Divalproex Sodium 500 Mg Tablet.Dr PO 500 mg BID CATA Administration Lorazepam 1 mg 07/21/20 21:24 07/25/20 18:02 Lorazepam 1 Mg Tablet PO 1 mg Q6H PRN Administration anxiety/restlessness Magnesium Hydroxide 30 ml 07/21/20 21:21 Milk Of Magnesia 30 Ml Oral.Susp PO DAILY PRN Constipation Nicotine 21 mg 07/22/20 09:59 07/25/20 08:34 Nicotine 21 Mg Patch.Td24 TRANSDERMA 21 mg DAILY CATA Administration Nicotine Polacrilex 4 mg 07/22/20 09:56 07/25/20 11:30 Nicotine Polacrilex 4 Mg Lozenge BUCCAL 4 mg Q2H PRN Administration Nicotine Cravings Paliperidone 6 mg 07/22/20 16:15 07/25/20 08:34 Paliperidone Er 6 Mg Tab.Er.24 PO 6 mg DAILY CATA Administration Trazodone HCl 50 mg 07/21/20 21:21 07/23/20 23:57 Trazodone Hcl 50 Mg Tablet PO 50 mg BEDTIME PRN Administration Insomnia Trazodone HCl 50 mg 07/22/20 21:00 07/25/20 21:03 Trazodone Hcl 50 Mg Tablet PO 50 mg BEDTIME CATA Administration Allergies Allergies Allergy/AdvReac Type Severity Reaction Status Date / Time haloperidol [From Haldol] AdvReac dystonia Verified 07/23/20 16:34 Assessment & Plan Assessment & Plan (1) Schizoaffective disorder, bipolar type: Status: Acute Code(s): F25.0 - Schizoaffective disorder, bipolar type Assessment and Plan: 1. Continue Paliperidone 6mg po daily 2. Continue depakote 500mg po BID for mood. 3. Obtain collateral information 4. Aftercare planning Monitor vitals Greater than 50% of the session was spent on counseling and/or coordination of care Reason for contiued inpatient stay Substantial Risk for: harm to self and inability to function
[2020-07-26] MEDS: Paliperidone ER 6 MG TAB.ER.24 PO (08:33)
[2020-07-26] MEDS: Nicotine 21 MG PATCH.TD24 TRANSDERMA (08:33)
[2020-07-26 08:45] VITALS: BP 112/72; PULSE 105
[2020-07-26 09:24] LABS: Valproate 79.1 mcg/mL (50.0-100.0)
[2020-07-26] MEDS: Divalproex Sodium 500 MG TABLET.DR PO ×2 (09:38→21:04)
[2020-07-26] MEDS: Acetaminophen 325 MG TABLET 650 MG PO ×2 (13:29→23:28)
[2020-07-26 18:00] VITALS: BP 139/65; PULSE 111; TEMP 37
[2020-07-26] MEDS: traZODone HCL 50 MG TABLET PO (21:04)
[2020-07-26] MEDS: LORazepam 1 MG TABLET PO (22:23)
[2020-07-27] MEDS: traZODone HCL 50 MG TABLET PO ×2 (00:30→21:54)
[2020-07-27 06:30] VITALS: BP 117/67; PULSE 77; RESP 16; TEMP 37.2; O2SAT 100
[2020-07-27] MEDS: Paliperidone ER 6 MG TAB.ER.24 PO (08:08)
[2020-07-27] MEDS: Nicotine 21 MG PATCH.TD24 TRANSDERMA (08:08)
[2020-07-27] MEDS: Divalproex Sodium 500 MG TABLET.DR PO ×2 (08:08→21:54)
[2020-07-27] MEDS: Acetaminophen 325 MG TABLET 650 MG PO (13:32)
[2020-07-27 17:21] VITALS: BP 111/73; PULSE 98; RESP 18; TEMP 37.2
--- NOTE | 2020-07-27 17:24 | HO.PSYCHPN ---
Subjective Subjective Date of Service: 07/27/20 Reason For Visit: Psychosis Interim History: Pt reports seeing less shadows, She reports feeling less paranoid towards others. She reports sleeping and eating well. No behavioral concerns. SHe denies SI/HI. She agrees to continue current medications. She thinks they are helping in that she can think more clearly. Review of Systems Review of Systems Yes Other (Uncooperative) Mental Status Exam Mental Status Exam Narrative: Appearance: casually groomed, improved hygiene, in NAD Behavior: cooperative Psychomotor: no agitation or retardation noted Speech: clear, regular rate/tone/rhythm, spontaneous TP: tangential at times TC: feeling like others are talking about her, hopeless/helpless Mood: better Affect: non labile AH/VH: less VH/AH Delusions: less suspiciousness, thinking ppl are out to get her. Insight/judgment: fair x 2. Memory/cog: alert, oriented x 3. grossly intact to conversational testing. Diagnostics Vital Signs (24Hr): Vital Signs - 24 hr 07/26/20 18:00 07/27/20 06:30 07/27/20 17:21 Temperature 98.6 F 99.0 F 98.9 F Pulse Rate 111 H 77 98 Respiratory Rate 16 18 Blood Pressure 139/65 117/67 111/73 Pulse Oximetry 100 Body Mass Index 23.0 Labs Results: 07/21/20 14:54 07/21/20 14:54 Labs: Laboratory Results - last 48 hr 07/26/20 08:33 Valproic Acid 79.1 Medications Medications Current Medications Generic Name Dose Route Start Last Admin Trade Name Freq PRN Reason Stop Dose Admin Acetaminophen 650 mg 07/21/20 21:21 07/27/20 13:32 Acetaminophen 325 Mg Tablet PO 650 mg Q6H PRN Administration Headache/Pain Mild Scale (1-3) Al Hydroxide/Mg Hydroxide 30 ml 07/21/20 21:21 Magnesium Hydrox/Alum Hydrox 30 Ml Oral.Susp PO Q6H PRN Heartburn/Nausea Benztropine Mesylate 1 mg 07/23/20 16:34 07/24/20 14:00 Benztropine Mesylate 1 Mg Tablet PO 1 mg Q8H PRN Administration EPS/dystonia Divalproex Sodium 500 mg 07/23/20 21:00 07/27/20 08:08 Divalproex Sodium 500 Mg Tablet. PO 500 mg BID CATA Administration Lorazepam 1 mg 07/21/20 21:24 07/26/20 22:23 Lorazepam 1 Mg Tablet PO 1 mg Q6H PRN Administration anxiety/restlessness Magnesium Hydroxide 30 ml 07/21/20 21: Milk Of Magnesia 30 Ml Oral.Susp PO DAILY PRN Constipation Nicotine 21 mg 07/22/20 09:59 07/27/20 08:08 Nicotine 21 Mg Patch.Td24 TRANSDERMA 21 mg DAILY CATA Administration Nicotine Polacrilex 4 mg 07/22/20 09:56 07/25/20 11:30 Nicotine Polacrilex 4 Mg Lozenge BUCCAL 4 mg Q2H PRN Administration Nicotine Cravings Paliperidone 6 mg 07/22/20 16:15 07/27/20 08:08 Paliperidone Er 6 Mg Tab.Er.24 PO 6 mg DAILY CATA Administration Trazodone HCl 50 mg 07/21/20 21:21 07/27/20 00:30 Trazodone Hcl 50 Mg Tablet PO 50 mg BEDTIME PRN Administration Insomnia Trazodone HCl 50 mg 07/22/20 21:00 07/27/20 00:56 Trazodone Hcl 50 Mg Tablet PO Not Given BEDTIME CATA Allergies Allergies Allergy/AdvReac Type Severity Reaction Status Date / Time haloperidol [From Haldol] AdvReac dystonia Verified 07/23/20 16:34 Assessment & Plan Assessment & Plan (1) Schizoaffective disorder, bipolar type: Status: Acute Code(s): F25.0 - Schizoaffective disorder, bipolar type Assessment and Plan: 1. Continue Paliperidone 6mg po daily 2. Continue depakote 500mg po BID for mood. 3. Obtain collateral information 4. Aftercare planning Monitor vitals Greater than 50% of the session was spent on counseling and/or coordination of care Reason for contiued inpatient stay Substantial Risk for: stable for discharge
[2020-07-28 06:05] VITALS: BP 97/54; PULSE 70; RESP 16; TEMP 36.5; O2SAT 99
[2020-07-28] MEDS: Paliperidone ER 6 MG TAB.ER.24 PO (08:30)
[2020-07-28] MEDS: Divalproex Sodium 500 MG TABLET.DR PO (08:30)
[2020-07-28] MEDS: Nicotine 21 MG PATCH.TD24 TRANSDERMA (08:30)
--- NOTE | 2020-07-28 09:56 | PC.NURSE ---
PT IS AWARE AND READY FOR DISCHARGE ON 07/28/20 AT 1100. PT REPORTS NO SUICIDAL OR HOMICDAL IDEATIONS. SHE DENIES ANY AUDITORY OR VISUAL HALLUCINATIONS. PT DOES NOT APPEAR TO BE RESPONDING TO INTERNAL STIMULI. PT HAS BEEN CALM, PLEASANT, AND COOPERATIVE. PT IS TAKING ALL MEDICATIONS. SHE IS INDEPENDENTLY CARING FOR ADLS.
--- NOTE | 2020-07-29 08:44 | P.DS_ITS ---
DS: Providers Provider Date of Service: 08/17/20 Date of admission: 07/21/20 21:21 Date of discharge: 07/28/20 Primary care physician: Unknown Physician Attending physician on discharge: Kierra Norman DS: Diagnosis Discharge Diagnosis (1) Schizoaffective disorder, bipolar type: Status: Acute DS: Medications Discharge Medications Home Medications: Previous Rx's Medication Instructions Recorded divalproex 500 mg PO BID 30 Days #60 tab 07/28/20 nicotine (polacrilex) 4 mg BUCCAL Q2H PRN 30 Days #60 ea 07/28/20 paliperidone [Invega] 6 mg PO DAILY 30 Days #30 tab 07/28/20 trazodone 50 mg PO BEDTIME 30 Days #30 tab 07/28/20 Discharge Plan Discharge Patient Disposition: Home, Self-Care Referrals: [employer] [Other] - 07/28/20 1:30 pm (Staff will call you at appointment time to assist you with application. Have medical documents available to provide necessary information about hospitalizations and psychiatric treatment) Lor Astorga (therapist) [Other] - 08/06/20 2:00 pm (Telehealth appointment) Isamar William (psychiatrist) [Other] - 08/19/20 9:00 am (Telehealth appointment) [place] [facility] [Other] (Visit [email or web address]://[email or web address]/[email or web address] for more information. Visit https://[email or web address]/uxl-[email or web address] to apply for services. ) [facility] Visiting RN [Other] - 07/30/20 (Fax- [phone] An RN will call to set up a visit time. Likely the visit will occure on 07/30/20. Please have your medication available for the RN to review. ) Christian Ma MD [Physician] - Discharge Medications: New trazodone 50 mg Tablet 50 mg PO BEDTIME 30 Days Qty: 30 RF: 0 divalproex 500 mg Tablet,Delayed Release (Dr/Ec) 500 mg PO BID 30 Days Qty: 60 RF: 0 paliperidone [Invega] 6 mg Tablet Extended Release 24hr 6 mg PO DAILY 30 Days Qty: 30 RF: 0 nicotine (polacrilex) 4 mg Mini Lozenge 4 mg buccal Q2H PRN (Reason: Nicotine Cravings) 30 Days Qty: 60 RF: 0 Discharge Orders: Discharge Order (Routine); Ordered 07/28/20 Ordered By: Kierra Norman Diet: regular diet Activity on Discharge: As tolerated Stand Alone Forms: Patient Portal Discharge page, Community Support Care Plan Goals: 1. Follow up with referrals 2. Take medications as prescribed Health Concerns: 1. follow up with PCP Plan of Treatment: 1. follow up with referrals 2. take medications as prescribed. Discharge Date/Time: 07/28/20 11:00 Mental Status Exam Mental Status Exam Narrative: Appearance: casually groomed, improved hygiene, in NAD Behavior: cooperative Psychomotor: no agitation or retardation noted Speech: clear, regular rate/tone/rhythm, spontaneous TP: tangential at times TC: less paranoid ideation, future oriented Mood: better Affect: non labile AH/VH: less VH/AH Delusions: less suspiciousness Insight/judgment: fair x 2. Memory/cog: alert, oriented x 3. grossly intact to conversational testing. Data Data Completed and Pending Completed studies during hospitalization [Text1]: 07/23/20 07/23/20 07/26/20 08:24 08:24 08:33 Estimat Average Glucose 82 Hemoglobin A1c % 4.5 Triglycerides 70 Cholesterol 142 LDL Cholesterol, Calc 83 HDL Cholesterol 45 TSH 1.24 Valproic Acid 79.1 DS: Summary Hospital Course Hospital Course: Ms. Beckham is a 20 year-old woman with hx of schizoaffective disorder, bipolar type. Per crisis assessment, pt called 911 due to increased suicidal ideation, feeling hopeless/helpless, stating people were talking about her. Collateral information from the mother was gathered by crisis, who reported that pt has been presenting as easily irritable, with periods of incongruent laughter and crying, not sleeping at night for the past month or so. Per crisis, pt has also been engaging in risky behaviors such as going away with two men that she didn't know. While in the ED, pt locked herself in bathroom for about 45 minutes, requiring chemical restraint of Haldol 5mg and Ativan 2mg. She apparently had also reported paranoia related to being part of a human trafficking false pass. On the unit, Ms. Beckham has been mostly in bed, minimally engaging or participating in interview with this continuity writer. She reports she called crisis because she wanted to . No plan disclose. She reports I'm tired of being so pretty. When asked if others are taking advantage of her because of her physical appearance, pt does not respond. She reports she thinks everybody is talking about her and this makes her very upset. When asked about VH/AH, pt denies hearing voices but apparently has been observed talking to herself and possibly AH of derogatory nature that she confuses as others talking about her. She denies history of suicide attempts. She reports she has been up for most nights. She reports in the past she has been on olanzapine but does not think it was helpful. Past Psychiatric History: Inpatient: [facility]- 01/2018- [facility] OP: none currently but used to go to [facility] Suicide attempts: none Past medication trials: olanzapine HOSPITAL COURSE On the unit, pt was placed on 15 minutes checks for safety. She was seen by treatment team daily. She presented as paranoid, laughing at times inapropriately. She reported AH/VH. She denied SI/HI. After discussing risks, benefits and alternative treatment options, pt agreed to start paliperidone. She tolerated the medication well and gradually presented as less labile, without paranoid delusions and reported less AH. She was increasingly more visible in the unit and attended assigned groups. She was social with selected peers. She agreed to continue OP psychiatric services, with plan to get [facility] Paliperine Invega. Collateral information gathered from the mother who at time of discharge reported pt appeared in much improved condition, less labile more coherent and less paranoid. Mother denied any safety concerns including suicidal or homicidal ideation and agreed that pt was ready to return home. There were no incidents of disruptive behaviors nor need for restraints. Time spent discussing smoking cessation with patient: 3 to 10 minutes Status at Discharge Cognitive/behavioral status at discharge: Pt with less paranoid delusions, less AH, non labile, appropriate with improved insight into psychiatric symptoms and in agreement to continue OP psych tx. No signs of aggression towards self or others. No SI/HI. Functional status at discharge: independent ambulation Overall status at discharge: patient is back to baseline Time Spent with Patient Time attestation: Total time spent providing and/or coordinating discharge services:
== END 2020-07-28 11:00 | disposition home or self-care (01) | DRG 750 ==
LOC: HO.ED 19:31 → HO.PM5 21:55
PROVIDERS: Emergency Medicine; Admitting Provider Psychiatry & Neurology Psychiatry; Emergency Provider Emergency Medicine; Visit Provider Social Worker
DX: F25.0 Schizoaffective disorder, bipolar type (principal); R45.851 Suicidal ideations; Z91.14 Patient's other noncompliance with medication regimen; Z20.822 Contact with and (suspected) exposure to COVID-19; F17.210 Nicotine dependence, cigarettes, uncomplicated; Z71.6 Tobacco abuse counseling; Z79.899 Other long term (current) drug therapy
CPT/HCPCS: 36415; 80053; 80061; 80164; 80307; 80320; 81025; 83036; 84443; 85025; 87635; 96372; 99285; J1200; J2060

== ENCOUNTER 2020-11-06 09:51 | Outpatient (REF) | payer OTHER, SELFPAY | END 2020-11-06 09:52 | disposition home or self-care (01) | LOC: HO.LAB 09:51 | PROVIDERS: Visit Provider Internal Medicine | DX: Z20.822 Contact with and (suspected) exposure to COVID-19 (principal) | CPT/HCPCS: C9803; U0003; U0005 ==

== ENCOUNTER 2024-03-16 13:37 | Inpatient (IN) | payer MEDICAID, OTHER, SELFPAY ==
[2024-03-16 13:45] VITALS: RESP 22; BMI 24.2
[2024-03-16] MEDS: LORazepam 2 MG/ML VIAL IM (13:50)
--- NOTE | 2024-03-16 13:53 | ED_ITS ---
HPI - General Adult General Chief complaint: Psychiatric Symptoms Stated complaint: ERRATIC BEHAVIOR,HX SCHIZOPHRENIA PER EMS Time Seen by Provider: 03/16/24 13:52 Source: patient, EMS, old records reviewed and police Mode of arrival: EMS Limitations: altered mental status History of Present Illness ED Provider: DR. Root HPI narrative: 23-year-old female came in by EMS and police for having a bizarre behavior likely under drug influence, patient in the emergency department is unwilling to talk, under section 12 By the police. Unable to obtain meaningful history at this point. Related Data Previous Rx's ?Medication ?Instructions ?Recorded divalproex 500 mg tablet,delayed 500 mg PO BID 30 days #60 tabs 07/28/20 release nicotine (polacrilex) 4 mg buccal 4 mg buccal Q2H PRN Nicotine 07/28/20 mini lozenge Cravings 30 days #60 ea paliperidone 6 mg tablet,extended 6 mg PO DAILY 30 days #30 tabs 07/28/20 release 24 hr (Invega) trazodone 50 mg tablet 50 mg PO BEDTIME 30 days #30 tabs 07/28/20 Allergies Allergy/AdvReac Type Severity Reaction Status Date / Time haloperidol [From Haldol] AdvReac dystonia Verified 03/16/24 13:52 Review of Systems Review of Systems: Yes Unobtainable due to mental status PMFSH Past Medical History Medical History Schizoaffective disorder Bipolar disorder Social History Social History Do you presently have visiting nurse or other home services: No Comment: sleeping Cigarette Packs Per Day: 0.5 Cigarettes Per Day: 10.0 Second Hand Smoke Exposure: Yes Substance Use Type: Marijuana service: No Sexual orientation: Straight/Heterosexual Physical Exam ED Vital Signs: Vital Signs - 24 hr 03/16/24 13:45 Respiratory Rate 22 H BMI result Body Mass Index 24.2 Appearance: Incoherent, agitated sometimes. exam is limited secondary to m ental status. Head: Normal external exam. Normocephalic. Atraumatic. No [place] signs noted. No raccoon eyes noted Eyes: PERRLA. EOMI. Conjunctiva and sclera normal. Eyelids normal. ENT: TM's Normal. Pharynx normal. Uvula midline. Moist mucous membranes. No trismus noted. No drooling noted. No muffled voice noted. Neck: Normal inspection. Neck supple. FROM. No adenopathy. Thyroid Normal. No meningeal signs. No neck mass noted. CVS: Normal heart rate and rhythm. Heart sound normal. No murmurs noted. Pulses normal throughout. Respiratory: No respiratory distress. Painless inspiration. Breath sounds normal. No wheezes/rales/rhonchi noted. Chest nontender. No accessory muscle usage noted or decreased air movement noted. Abdomen: Soft and nontender. Bowel sounds normal in all 4 quadrants. No distention noted. No organomegaly noted. No visible injury noted. Back: No CVA tenderness. Full range of motion noted. Skin: Skin warm and dry. Normal skin color. Normal skin turgor. No rashes/lesions/lacerations noted. Extremities: No lower extremity edema. Extremities exhibit normal range of motion. Extremities nontender. Neuro: Oriented X 3. Cranial nerve exam: II-XII are grossly intact No motor deficit. No sensory deficit. Reflexes normal. Course Reevaluation(s) Reevaluation #1: Bizarre behavior, non historian this point, needed Ativan for anxiety versus influence of drugs. Time: 13:57 Medical Decision Making Differential Diagnosis Differential Diagnoses: The differential diagnosis associated with the presentation includes ( Acute psychosis, under drug influenza, alcohol intoxication, electrolyte derangement, severe anemia.) Admission/Observation Consideration of admission/observation: Escalation of care including admission/observation considered Discharge Plan Discharge Clinical Impression: Acute anxiety, Acute psychosis Patient Disposition: Still a Patient Prescriptions: No Action trazodone 50 mg Tablet 50 mg PO BEDTIME 30 Days Qty: 30 0RF divalproex 500 mg Tablet,Delayed Release (Dr/Ec) 500 mg PO BID 30 Days Qty: 60 0RF paliperidone [Invega] 6 mg Tablet Extended Release 24hr 6 mg PO DAILY 30 Days Qty: 30 0RF nicotine (polacrilex) 4 mg Mini Lozenge 4 mg buccal Q2H PRN (Reason: Nicotine Cravings) 30 Days Qty: 60 0RF Print Language: Sinhala
--- NOTE | 2024-03-16 13:57 | MHC.CARE ---
Pt arrived via Nilesh WORLEY on a Section 12a. A new Section 12a was completed by CARE team as well per protocol. Per PD, Pt was found in front of her home, dancing, acting erratic and bizarre. She was unable to answer any questions. Pt is screaming, laughing bizarrely and presents with an altered mental status at this time.
[2024-03-16 14:04] VITALS: RESP 16
--- NOTE | 2024-03-16 14:07 | PC.NURSE ---
Pt RIAN from [place] with Nilesh WORLEY on board. Pt was reported to be acting erratically in front of her apartment, not answering questions. Unknown whether patient did drugs prior to arrival. Pt is only able to state her name. Pt continues to yell and scream in her room. Pt attempted to charge at [facility], screaming at staff, slamming the door to another patient's room. Pt required two rounds of IM medication. First 2mg Ativan and second 5mg Zyprexa and 50mg Benadryl
[2024-03-16] MEDS: OLANZapine 10 MG VIAL 5 MG IM (14:20)
[2024-03-16] MEDS: diphenhydrAMINE HCL 50 MG/ML VIAL IM (14:20)
[2024-03-16 14:50] VITALS: RESP 16
[2024-03-16 16:34] VITALS: PULSE 68; RESP 16; O2SAT 97
--- NOTE | 2024-03-16 17:30 | PC.NURSE ---
Pt appears to be sleeping at this time, respirations even and unlabored, no apparent distress noted
[2024-03-16 21:54] VITALS: BP 114/76; PULSE 72; RESP 16; O2SAT 99
--- NOTE | 2024-03-16 22:01 | PC.NURSE ---
Assumed care of pt at 1845. Pt appears to be sleeping- respirations even and unlabored. Vitals obtained as no bp obtained since pt arrived. PT following basic commands and when asked about getting labs pt refused. Will attempt when pt is more alert. Safety precautions in place. 15 minutes safety checks in place. Plan of care ongoing
[2024-03-16 23:01] LABS: Basophils Percent Auto 0.4 % (0-2); Eosinophils Absolute Auto 0.1 X10*3/uL (0.0-0.4); Eosinophils Percent Auto 0.7 % (0-4); Hematocrit 36.2 % (37.0-47.0); Hemoglobin 13.4 g/dl (12.0-16.0); Imm Gran Abs Auto 0.03 X10*3/uL (0.00-0.03); Imm Gran Pct Auto 0.3 % (0.0-0.4); Lymphocytes Absolute Auto 4.4 X10*3/uL (1.2-4.9); Lymphocytes Percent Auto 40.7 % (20-40); MANUAL DIFF FLAG NO; Mean Corpuscular Volume 83.8 fL (80.0-98.0); Mean Platelet Volume 10.4 fL (9.4-12.3); Monocytes Absolute Auto 0.9 X10*3/uL (0.1-1.2); Monocytes Percent Auto 8.1 % (2-11); Neutrophils Absolute Auto 5.4 x10*3/uL (2.0-8.3); Neutrophils Percent Auto 49.8 % (45-73); Platelet Count 291 X10*3/uL (160-400); Red Blood Count 4.32 X10*6/uL (4.20-5.50); Red Cell Distribution Width 12.4 % (11.0-16.0); White Blood Count 10.8 X10*3/uL (4.8-10.8)
[2024-03-16 23:12] LABS: Ethanol < 10 mg/dL
[2024-03-16 23:17] LABS: Acetaminophen LAB < 3 mcg/mL (<30); Salicylate < 5.0 mg/dL (15-30)
[2024-03-16 23:18] LABS: Alanine Aminotransferase 21 U/L (0-31); Albumin Level 4.8 g/dL (3.5-5.0); Alkaline Phosphatase 65 U/L (39-117); Anion Gap 15 (12-20); Aspartate Amino Transferase 35 U/L (5-31); Bilirubin Direct 0.5 mg/dL (0.0-0.5); Bilirubin Total 1.7 mg/dL (0.0-1.0); Blood Urea Nitrogen 14 mg/dL (9-16); Calcium 8.9 mg/dL (8.4-10.2); Carbon Dioxide 21 mmol/L (22-29); Chloride 107 mmol/L (96-108); Creatinine Clr Calc Pharmacy 106.8; Estimated Glomerular Filt Rate > 60; Glucose Random 77 mg/dL (60-115); Lipase 6 U/L (8-78); Potassium 3.6 mmol/L (3.3-5.1); Sodium 139 mmol/L (135-145); Total Protein 8.1 g/dL (6.5-8.0)
[2024-03-17 02:20] LABS: Appearance Urine Clear; Color Urine Yellow; Glucose Urine UA Negative (Negative); Leukocyte Esterase Urine Negative (Negative); Nitrite Urine Negative (Negative); PH 5.5 (5.0-9.0); UMIC TRIGGER UACC YES; UPreg QC Valid YES; Urine Blood Moderate (2+) (Negative); Urine Ketones Trace mg/dL (Negative); Urine Pregnancy NEGATIVE (NEGATIVE); Urine Protein Negative (Neg-Trace)
[2024-03-17 02:29] LABS: Amphetamine Screen Urine Not Detected (Not Detect); Barbiturates, Urine Not Detected (Not Detect); Benzodiazepines Screen Urine Not Detected (Not Detect); Buprenorphine Scr Not Detected (Not Detect); Cannabinoid Screen Urine POSITIVE (Not Detect); Cocaine Screen Urine Not Detected (Not Detect); Fentanyl, urine Not Detected (Not Detect); Methadone Screen, Urine Not Detected (Not Detect); Opiate Screen Urine Not Detected (Not Detect); Oxycodone Screen Urine Not Detected (Not Detect); Phencyclidine Screen Urine Not Detected (Not Detect)
[2024-03-17 02:55] LABS: Bacteria Urine None Seen (None Seen); Hyaline Casts Urine 0-2 /LPF (0-2); RBC Urine 0-2 /HPF (0-2); WBC Urine 0-5 /HPF (0-5)
[2024-03-17] MEDS: Melatonin 3 MG TABLET 6 MG PO (03:29)
--- NOTE | 2024-03-17 03:39 | PC.NURSE ---
PT pacing,restless and behaving bizarre- making strange statements. TW asked pt if she wanted medications to help hel rest and she reported she does like like to take medications. PT later came to do TW and requested melatonin. Provider notified and placed order. PT medication as per JUL. Effectivness pending
[2024-03-17 05:25] VITALS: BP 133/108; PULSE 85; RESP 16; TEMP 36.9; O2SAT 100
--- NOTE | 2024-03-17 06:42 | PC.NURSE ---
Pt becoming increasingly agitated. Speaking loudly near other patients room, not easily redirectable. PT went to use phone before 7 and initially refused to get off. PT slammed phone and yelling at staff making disorder comments. PT also reported to tw i forgot to mention that i hit my head before coming i endorsing spots/flashing lights in her vision. Provider aware. no new orders at this time
--- NOTE | 2024-03-17 10:22 | PC.NURSE ---
Assumed care of patient at 0645, patient appears to be in no apparent distress, was coloring in common area but ambulated back to her room to sleep, now being assessed by CARE team
--- NOTE | 2024-03-17 10:42 | MHC.CARE ---
T/W attempted to meet with Pt this morning for assessment. Pt was sedated and minimally able to engage in the assessment process. A phone call was placed to her mother for collateral. Awaiting a call back. At this time Pt meets [facility] secondary to her presentation when arriving to the ED yesterday where Pt was agitated, screaming and mental status is altered.
--- NOTE | 2024-03-17 12:12 | P.CNPS_ITS ---
History of Present Illness Date of Service: t Chief Complaint: ERRATIC BEHAVIOR,HX SCHIZOPHRENIA PER EMS Reason for Consult: ED assessment Sources of Information: patient interviewed, chart reviewed and crisis/core team assessment reviewed HPI Narrative: The patient is a 23 year old female, with a past history of Schizoaffective Disorder bipolar type, with at least 2 admissions into inpatient psychiatry, one in 2020 at our psychiatric unit for disorganized behavior and mood lability. She was a resident of a fpc and apparently, she had been non-compliant with medications for 3 years. She was brought to the ED by [facility] crisis since she was grossly disorganized, yelling in the apartment complex with paranoid statements. When she was brought to the ED, she tried to elope and she was chemically restrained last night with Zyprexa 5 mg, Benadryl 50 mg and Ativan 2 mg IM. The nursing staff, she slept a few hours last night, she took a shower today in the morning and she was seclussive. During the intake interview, the patient reported that she recently relocated to this area, she used to live in [place] [facility] with she finished a long romantic relation and came back. She was polite, pleasant but stated that she does not want to take any medications. She adamantly denies suicidal or homicidal thoughts, she denies auditory or visual hallucinations. She admitted that in the past she was prescribed with Depakote, Zyprexa and other medications that she can not remember. She also reported that she was diagnosed with fibromyalgia but she has never follow treatment. Past Psychiatric History: Inpatient: [facility]- 01/2018- [facility] Admitted here in 2020 OP: none currently but used to go to [facility] Suicide attempts: none Past medication trials: olanzapine Medical Evaluation Reviewed: Yes Review of Systems Review of Systems Yes all other systems are reviewed and are negative [facility] Medical History Schizoaffective disorder Bipolar disorder Family History: refused to elaborate Substance History: unclear, U/tox on admission, positive to cannabis Diagnostics Vital Signs (24Hr): Vital Signs - 24 hr 03/16/24 13:45 03/16/24 14:04 03/16/24 14:50 Temperature Pulse Rate Respiratory Rate 22 H 16 16 Blood Pressure Pulse Oximetry Oxygen Delivery Method 03/16/24 16:34 03/16/24 21:54 03/17/24 05:25 Temperature 98.4 F Pulse Rate 68 72 85 Respiratory Rate 16 16 16 Blood Pressure 114/76 133/108 H Pulse Oximetry 97 99 100 Oxygen Delivery Method Room Air Room Air Room Air BMI result Body Mass Index 24.2 Labs 03/16/24 22:53 03/16/24 22:53 Labs: Laboratory Results - last 48 hr 03/16/24 03/17/24 22:53 02:10 WBC 10.8 RBC 4.32 Hgb 13.4 Hct 36.2 L MCV 83.8 MCH 31.0 MCHC 37.0 H RDW 12.4 Plt Count 291 MPV 10.4 Immature Gran % (Auto) 0.3 Neut % (Auto) 49.8 Lymph % (Auto) 40.7 H [place] % (Auto) 8.1 Eos % (Auto) 0.7 Baso % (Auto) 0.4 Lymph # (Auto) 4.4 [place] # (Auto) 0.9 Eos # (Auto) 0.1 Baso # (Auto) 0.0 Abs Immat Gran (auto) 0.03 Absolute Neuts (auto) 5.4 Absolute Nucleated RBC 0.000 Nucleated RBC % (auto) 0.0 Sodium 139 Potassium 3.6 Chloride 107 Carbon Dioxide 21 L Anion Gap 15 BUN 14 Creatinine 0.76 Estim Creat Clear Calc 106.8 Estimated GFR > 60 Random Glucose 77 Calcium 8.9 D Total Bilirubin 1.7 H Direct Bilirubin 0.5 AST 35 H ALT 21 Alkaline Phosphatase 65 Total Protein 8.1 H Albumin 4.8 Lipase 6 L Urine Color Yellow Urine Appearance Clear Urine pH 5.5 Ur Specific [place] 1.020 Urine Protein Negative Urine Glucose (UA) Negative Urine Ketones Trace Urine Blood Moderate (2+) H Urine Nitrite Negative Ur Leukocyte Esterase Negative Urine RBC 0-2 Urine WBC 0-5 Ur Squamous Epith Cells 3-5 Urine Bacteria None Seen Hyaline Casts 0-2 Urine Test NEGATIVE Salicylates < 5.0 L Urine Opiates Screen Not Detected Ur Buprenorphine Scrn Not Detected Ur Oxycodone Screen Not Detected Urine Methadone Screen Not Detected Urine Fentanyl Screen Not Detected Acetaminophen < 3 Ur Barbiturates Screen Not Detected Ur Phencyclidine Scrn Not Detected Ur Amphetamines Screen Not Detected U Benzodiazepines Scrn Not Detected Urine Cocaine Screen Not Detected U Marijuana (THC) Screen POSITIVE H Ethyl Alcohol < 10 Mental Status Exam Mental Status Exam Patient Appearance: Appropriate (on hospital gowns) Patient Orientation: Person, Place, Time and Situation Level of Consciousness: Awake Patient Behavior: Guarded and Suspicious Mood Description: Calm Affect Description: Constricted and Blunted Ability to Follow Directions: Fair Speech Pattern: Clear Hallucinations: None Delusions: Paranoid Ideation and Ideas of Reference Thought Process: Distracted and Evasive Thought Content: positive for Poverty of Content Judgement: Poor Medications Allergies Allergies Allergy/AdvReac Type Severity Reaction Status Date / Time haloperidol [From Haldol] AdvReac dystonia Verified 03/16/24 13:52 Assessment & Plan Assessment & Plan (1) Schizoaffective disorder, bipolar type: Status: Acute Code(s): F25.0 - Schizoaffective disorder, bipolar type (2) Acute psychosis: Status: Acute Code(s): F23 - Brief psychotic disorder Plan The patient is a 23 year old female with a past history of Schizoaffective disorder, apparently non-compliant with medications for 3 years, referred to our ED by Erin philip since she was grossly psychotic and disorganized in the community. When she arrived to our ED, she tried to elope and needed to be chemically restrained. The present consult was asked for medication management. Plan: 1. Gather collateral information. As per med/rec there are no current medications prescribed. 2. CARE team assessment. 3. The patient reported in the past she tried Zyprexa, Depakote and other medications. I offer her a low dose of Zyprexa at night for sleep. 4. Reassessment as demand. Total time managing care of this patient today __30__ minutes. Patient educated on: diagnosis Informed Consent: further education needed
[2024-03-17 14:49] VITALS: BP 126/85; PULSE 88; RESP 16; O2SAT 99
--- NOTE | 2024-03-17 14:50 | PC.NURSE ---
Pt sitting in common area with another patient drawing and coloring, having polite and insightful conversations about life, music, movies and jobs. Pt is calm and cooperative, no apparent distress is noted at this time
[2024-03-17] MEDS: Ibuprofen 600 MG TABLET PO (16:20)
--- NOTE | 2024-03-17 19:47 | PC.NURSE ---
patient appears to remain at rest presently respirations are even and unlabored patient appears in no distress.
[2024-03-17] MEDS: OLANZapine 2.5 MG TABLET PO ×2 (21:21)
--- NOTE | 2024-03-17 21:24 | PC.NURSE ---
client had initially declined med i dont like pills client had exhibited mildescalating behaviors, swearing grunting represented medications and patient took zyprexa.
[2024-03-17] MEDS: Acetaminophen 325 MG TABLET 975 MG PO (21:27)
--- NOTE | 2024-03-17 22:48 | PC.NURSE ---
patient in group area shuffling papers, in techs perception seems agitated, offered 3 options for sleep meds. declined.
[2024-03-18 04:39] VITALS: BP 121/77; PULSE 72; RESP 16; TEMP 36.9; O2SAT 100
--- NOTE | 2024-03-18 08:12 | ECG_ITS ---
Test Reason : check for prolong qt Blood Pressure : / mmHG Vent. Rate : 075 BPM Atrial Rate : 075 BPM P-R Int : 144 ms QRS Dur : 084 ms QT Int : 386 ms P-R-T Axes : 048 071 050 degrees QTc Int : 431 ms Normal sinus rhythm Normal ECG No previous ECGs available Referred By: Generic ED Physician Electronically Signed By:J Carlos Maddox
--- NOTE | 2024-03-18 08:19 | PHA.MEDREC ---
Pharmacy Consult ? Medication Reconciliation RN completed med rec with No known home medications . Claims are empty supporting this claim.
--- NOTE | 2024-03-18 14:46 | PC.NURSE ---
belongings obtained/provided to pt prior to transferring to inpatient unit. pt transported by [facility].
[2024-03-18] MEDS: Nicotine 21 MG PATCH.TD24 TRANSDERMA (16:36)
[2024-03-18] MEDS: Nicotine Polacrilex 2 MG GUM 4 MG BUCCAL (16:36)
[2024-03-18 16:37] VITALS: BMI 23.0
[2024-03-18 16:38] VITALS: BP 127/82; PULSE 75; RESP 18; TEMP 36.6; O2SAT 100
[2024-03-18] MEDS: Paliperidone ER 3 MG TAB.ER.24 PO (17:54)
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
[2024-03-18 20:00] VITALS: BP 152/76; PULSE 97; TEMP 36.7; O2SAT 99
[2024-03-18] MEDS: Divalproex Sodium ER 250 MG TAB.ER.24H 750 MG PO (21:10)
[2024-03-18] MEDS: Acetaminophen 325 MG TABLET 650 MG PO (21:11)
[2024-03-19] MEDS: Nicotine Polacrilex 2 MG GUM 4 MG BUCCAL ×5 (02:14→21:18)
[2024-03-19] MEDS: Nicotine 21 MG PATCH.TD24 TRANSDERMA ×2 (05:21→09:03)
[2024-03-19 07:58] LABS: Estimated Average Glucose 88 mg/dL; Hemoglobin A1C 85.6024 umol/L; Hemoglobin A1c % 4.7 % (<6.0); Total Hemoglobin (HGBA1C) 3113.1305 umol/L
[2024-03-19 08:06] LABS: Alanine Aminotransferase 29 U/L (0-31); Albumin Level 4.6 g/dL (3.5-5.0); Alkaline Phosphatase 69 U/L (39-117); Anion Gap 13 (12-20); Aspartate Amino Transferase 48 U/L (5-31); Blood Urea Nitrogen 11 mg/dL (9-16); Calcium 9.8 mg/dL (8.4-10.2); Carbon Dioxide 24 mmol/L (22-29); Chloride 106 mmol/L (96-108); Cholesterol 100 mg/dL (<200); Estimated Glomerular Filt Rate > 60; Glucose Fasting 101 mg/dL (60-99); HDL Cholesterol 50 mg/dL (>40); LDL Cholesterol Calculated 41 mg/dL (<100); Potassium 3.9 mmol/L (3.3-5.1); Sodium 139 mmol/L (135-145); Total Protein 7.7 g/dL (6.5-8.0); Triglycerides 46 mg/dL (<150)
[2024-03-19 08:14] VITALS: BP 137/82; PULSE 102; RESP 16; TEMP 36.6; O2SAT 100
[2024-03-19 08:21] LABS: TSH reflex Free T4 1.72 uIU/mL (0.32-4.0)
[2024-03-19] MEDS: Paliperidone ER 3 MG TAB.ER.24 PO (09:04)
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
[2024-03-19] MEDS: Acetaminophen 325 MG TABLET 650 MG PO (12:41)
[2024-03-19 20:00] VITALS: BP 129/89; PULSE 117; TEMP 36.2; O2SAT 100
--- NOTE | 2024-03-19 21:56 | PC.NURSE ---
Patient refused scheduled depakote; stated I don't use any of that. I just use weed, but I don't have my card yet.
[2024-03-20] MEDS: Nicotine Polacrilex 2 MG GUM 4 MG BUCCAL ×2 (05:10→23:42)
[2024-03-20 08:00] VITALS: BP 130/80; PULSE 82; RESP 16; TEMP 36.8; O2SAT 100
[2024-03-20] MEDS: OLANZapine 5 MG TABLET PO ×2 (08:53→13:32)
[2024-03-20] MEDS: Paliperidone ER 6 MG TAB.ER.24 PO (08:53)
[2024-03-20] MEDS: hydrOXYzine HCL 25 MG TABLET PO ×2 (08:53→13:32)
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
[2024-03-20 13:09] LABS: HCG Quantitative < 2 mIU/mL
[2024-03-20] MEDS: Nicotine 21 MG PATCH.TD24 TRANSDERMA (14:55)
--- NOTE | 2024-03-20 17:41 | PC.RT ---
RT second attempt with smoking cessation. Entered pts room with female RADIATION OFFICER, pt diff to arouse for second day. Nursing aware.
[2024-03-20 21:48] VITALS: BP 131/89; PULSE 90; RESP 16; TEMP 36.9; O2SAT 100
[2024-03-21 08:00] VITALS: BP 106/57; PULSE 81; RESP 18; TEMP 36.7; O2SAT 100
[2024-03-21] MEDS: Paliperidone ER 6 MG TAB.ER.24 PO (08:14)
[2024-03-21] MEDS: Nicotine 21 MG PATCH.TD24 TRANSDERMA (08:14)
[2024-03-21] MEDS: Nicotine Polacrilex 2 MG GUM 4 MG BUCCAL ×2 (13:01→14:17)
[2024-03-21] MEDS: Acetaminophen 325 MG TABLET 650 MG PO (14:17)
[2024-03-21] MEDS: OLANZapine ODT 10 MG TAB.RAPDIS TRANSLINGU (14:18)
[2024-03-21] MEDS: hydrOXYzine HCL 25 MG TABLET PO (17:39)
--- NOTE | 2024-03-21 17:45 | PC.NURSE ---
After dinner patient requested medication for anxiety and stated I need everyone to know I have sleep paralysis. I wake up to the benny in the box and see the weasel. He's a villain in the [place] universe and he killed 27 children so you already know . Hydroxyzine given per request.
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
[2024-03-21 20:00] VITALS: BP 133/74; PULSE 100; RESP 16; TEMP 37; O2SAT 100
[2024-03-21] MEDS: Divalproex Sodium ER 500 MG TAB.ER.24H 1000 MG PO (20:20)
[2024-03-22 08:00] VITALS: BP 129/85; PULSE 92; RESP 18; TEMP 36; O2SAT 100
[2024-03-22] MEDS: Paliperidone ER 6 MG TAB.ER.24 PO (08:21)
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
[2024-03-22] MEDS: Acetaminophen 325 MG TABLET 650 MG PO ×2 (10:20→20:48)
[2024-03-22] MEDS: Nicotine Polacrilex 2 MG GUM 4 MG BUCCAL (11:32)
[2024-03-22] MEDS: Nicotine 21 MG PATCH.TD24 TRANSDERMA (14:13)
[2024-03-22 20:00] VITALS: BP 134/72; PULSE 102; TEMP 36.6; O2SAT 100
[2024-03-22] MEDS: hydrOXYzine HCL 25 MG TABLET PO (20:48)
[2024-03-22] MEDS: Divalproex Sodium ER 500 MG TAB.ER.24H 1000 MG PO (20:48)
--- NOTE | 2024-03-23 02:01 | PC.NURSE ---
Patient stated that a peer knows me, but elaborated She says she knows Ar. That's the [place]. Then she [the peer] gave me a strange Ar' phone number. She's [the peer] been to a lot of rehabs. I think we know a lot of the same people. However, this patient states only first names of the allegedly mutual acquaintances, all of which can be common, such as Ar. It is unclear if this patient is paranoid/delusional, or unable to articulate a real situation. This patient also states she [the peer] is talking about me! See? (pointed to peer, who is 15 to 20 feet away, amid the ambient noise of a television and the conversation of other peers.) This speech writer was unable to hear the peer.
[2024-03-23] MEDS: Acetaminophen 325 MG TABLET 650 MG PO (06:56)
[2024-03-23 08:00] VITALS: BP 124/75; PULSE 94; RESP 16; TEMP 36.8; O2SAT 100
[2024-03-23] MEDS: Paliperidone ER 6 MG TAB.ER.24 PO (10:03)
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
[2024-03-23] MEDS: Nicotine Polacrilex 2 MG GUM 4 MG BUCCAL (11:58)
[2024-03-23] MEDS: Nicotine 21 MG PATCH.TD24 TRANSDERMA (14:30)
[2024-03-23 20:00] VITALS: BP 161/94; PULSE 113; TEMP 36.8; O2SAT 100
[2024-03-23] MEDS: Divalproex Sodium ER 500 MG TAB.ER.24H 1000 MG PO (21:47)
[2024-03-24] MEDS: Acetaminophen 325 MG TABLET 650 MG PO ×2 (06:37→14:14)
[2024-03-24 08:00] VITALS: BP 144/77; PULSE 119; RESP 16; TEMP 36.4; O2SAT 97
[2024-03-24] MEDS: Nicotine 21 MG PATCH.TD24 TRANSDERMA (08:37)
[2024-03-24] MEDS: Paliperidone ER 6 MG TAB.ER.24 PO (08:37)
[2024-03-24] MEDS: Nicotine Polacrilex 2 MG GUM 4 MG BUCCAL (09:20)
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
[2024-03-24 20:00] VITALS: BP 137/64; PULSE 95; TEMP 36.8; O2SAT 100
[2024-03-24] MEDS: Divalproex Sodium ER 500 MG TAB.ER.24H 1000 MG PO (20:48)
[2024-03-24] MEDS: traZODone HCL 50 MG TABLET PO (20:49)
[2024-03-24] MEDS: Lidocaine 4 % Patch ADH..PATCH 1 PATCH TRANSDERMA (20:53)
[2024-03-25 08:00] VITALS: BP 118/56; PULSE 79; RESP 18; TEMP 36.1; O2SAT 99
[2024-03-25 08:22] LABS: Valproate 92.9 mcg/mL (50.0-100.0)
[2024-03-25] MEDS: Paliperidone ER 6 MG TAB.ER.24 PO (08:41)
[2024-03-25] MEDS: Acetaminophen 325 MG TABLET 650 MG PO (08:41)
[2024-03-25] MEDS: Nicotine Polacrilex 2 MG GUM 4 MG BUCCAL (16:38)
[2024-03-25] MEDS: Nicotine 21 MG PATCH.TD24 TRANSDERMA (16:38)
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
[2024-03-25] MEDS: Lidocaine 4 % Patch ADH..PATCH 1 PATCH TRANSDERMA (18:59)
[2024-03-25 19:52] VITALS: BP 118/67; PULSE 100; TEMP 36.9; O2SAT 100
[2024-03-25] MEDS: OLANZapine 5 MG TABLET PO (20:24)
[2024-03-25] MEDS: traZODone HCL 50 MG TABLET PO (20:25)
[2024-03-25] MEDS: Divalproex Sodium ER 500 MG TAB.ER.24H 1000 MG PO (20:25)
[2024-03-26] MEDS: Acetaminophen 325 MG TABLET 650 MG PO ×3 (01:41→18:17)
[2024-03-26] MEDS: hydrOXYzine HCL 25 MG TABLET PO (01:41)
[2024-03-26 08:04] VITALS: BP 118/72; PULSE 108; RESP 18; TEMP 36.8; O2SAT 99
[2024-03-26] MEDS: Paliperidone ER 6 MG TAB.ER.24 PO (08:36)
[2024-03-26] MEDS: Lidocaine 4 % Patch ADH..PATCH 1 PATCH TRANSDERMA (08:37)
[2024-03-26] MEDS: Nicotine Polacrilex 2 MG GUM 4 MG BUCCAL ×2 (10:14→16:15)
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
[2024-03-26] MEDS: Divalproex Sodium Sprinkles 125 MG CAP.DR.SPR 500 MG PO ×2 (11:53→21:24)
[2024-03-26] MEDS: Paliperidone Palmitate 234 MG/1.5 ML SYRINGE IM (12:07)
[2024-03-26 20:00] VITALS: BP 111/56; PULSE 100; RESP 16; TEMP 37.1; O2SAT 100
[2024-03-27] MEDS: Nicotine Polacrilex 2 MG GUM 4 MG BUCCAL ×2 (00:47→15:47)
[2024-03-27] MEDS: Acetaminophen 325 MG TABLET 650 MG PO ×3 (00:47→20:21)
[2024-03-27] MEDS: traZODone HCL 50 MG TABLET PO ×2 (02:42→23:06)
[2024-03-27 08:04] VITALS: BP 120/67; PULSE 87; RESP 18; TEMP 36.4; O2SAT 100
[2024-03-27] MEDS: Divalproex Sodium Sprinkles 125 MG CAP.DR.SPR 500 MG PO ×2 (08:26→21:22)
[2024-03-27] MEDS: Paliperidone ER 6 MG TAB.ER.24 PO (08:26)
[2024-03-27] MEDS: Lidocaine 4 % Patch ADH..PATCH 1 PATCH TRANSDERMA (13:13)
[2024-03-27 19:57] VITALS: BP 129/79; PULSE 97; RESP 16; TEMP 37.1; O2SAT 100
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
[2024-03-28] MEDS: Acetaminophen 325 MG TABLET 650 MG PO (02:51)
[2024-03-28] MEDS: hydrOXYzine HCL 25 MG TABLET PO (02:51)
[2024-03-28 08:00] VITALS: BP 114/75; PULSE 88; RESP 16; TEMP 37.4; O2SAT 99
[2024-03-28] MEDS: Lidocaine 4 % Patch ADH..PATCH 1 PATCH TRANSDERMA (08:41)
[2024-03-28] MEDS: Paliperidone ER 6 MG TAB.ER.24 PO (08:44)
[2024-03-28] MEDS: Divalproex Sodium Sprinkles 125 MG CAP.DR.SPR 500 MG PO (08:44)
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
== END 2024-03-28 11:00 | disposition home or self-care (01) | DRG 750 ==
LOC: HO.ED 03-18 13:00 → HO.PM5 03-18 13:16
PROVIDERS: Psychiatry & Neurology Psychiatry; Admitting Provider Psychiatry & Neurology Psychiatry; Emergency Provider Emergency Medicine; Visit Provider Psychiatry & Neurology Psychiatry
DX: F25.0 Schizoaffective disorder, bipolar type (principal); Z91.148 Patient's other noncompliance with medication regimen for other reason; Z79.899 Other long term (current) drug therapy
CPT/HCPCS: 36415; 80048; 80053; 80061; 80076; 80143; 80164; 80179; 80307; 81001; 81025; 83036; 83690; 84443; 84702; 85025; 93005; 99285; J1200; J2060; J2359; J2426; S9485

== ENCOUNTER → 2024-03-16 17:24 | Outpatient (BNV) | payer OTHER, SELFPAY | PROVIDERS: Emergency Provider Emergency Medicine; Visit Provider Psychiatry & Neurology Psychiatry | DX: F25.0 Schizoaffective disorder, bipolar type (principal) | CPT/HCPCS: 99231; 99232 ==

== ENCOUNTER → 2024-03-18 08:12 | Outpatient (BNV) | payer MEDICAID, SELFPAY | PROVIDERS: Emergency Provider Emergency Medicine; Visit Provider Internal Medicine Cardiovascular Disease | DX: I45.81 Long QT syndrome (principal) | CPT/HCPCS: 93010 ==